=== PATIENT | male | born 1990 | race African-American/Black ===

== ENCOUNTER 2017-05-30 21:31 | Emergency (ER) | payer OTHER ==
[~2017-05-30] VITALS: Ht 180.3 cm; Wt 68.3 kg
[2017-05-30 21:59] VITALS: BP 110/71
== END 2017-05-31 00:12 | disposition left against medical advice (07) ==
LOC: ER 21:33
DX: Z53.21 Procedure and treatment not carried out due to patient leaving prior to being seen by health care provider (principal)

== ENCOUNTER 2017-06-25 06:35 | Emergency (ER) | payer MEDICAID, OTHER ==
[~2017-06-25] VITALS: Ht 180.3 cm; Wt 70.5 kg
[2017-06-25] MEDS ORDERED: HYDROcodone/acetaminophen 10/325mg tab PO ONE (07:00)
[2017-06-25] MEDS ORDERED: HYDR-569 PO (08:17)
[2017-06-25] MEDS ORDERED: TETanus/Pertussis (Acell)/Diphther VAC/PF (Tdap-Adult) 0.5ml syringe IM ONE (08:20)
[2017-06-25 08:45] VITALS: BP 119/68
== END 2017-06-25 09:35 | disposition home or self-care (01) ==
LOC: ER 06:36
DX: S02.40CA Maxillary fracture, right side, initial encounter for closed fracture (principal); H54.62 Unqualified visual loss, left eye, normal vision right eye; Y04.8XXA Assault by other bodily force, initial encounter; Y93.89 Activity, other specified; Y92.89 Other specified places as the place of occurrence of the external cause; Y99.8 Other external cause status
CPT/HCPCS: 90471; 90715; 99284